=== PATIENT | male | born 1955 | race Caucasian/White ===

== ENCOUNTER 2023-03-03 13:02 | Emergency (ER) | payer MEDICARE, OTHER ==
[~2023-03-03] VITALS: Ht 157.5 cm; Wt 63.6 kg
[2023-03-03 13:17] VITALS: BP 140/76; PULSE 72; RESP 18; TEMP 98
== END 2023-03-03 15:46 | disposition home or self-care (01) ==
LOC: EDSEX 13:38 → EMS 13:38
DX: L70.0 Acne vulgaris (principal); F17.210 Nicotine dependence, cigarettes, uncomplicated
CPT/HCPCS: 99281; 99284; Z7502

== ENCOUNTER 2023-06-07 13:24 | Emergency (ER) | payer MEDICARE, OTHER | END 2023-06-07 13:38 | disposition left against medical advice (07) | LOC: EMS 13:24 | DX: Z53.21 Procedure and treatment not carried out due to patient leaving prior to being seen by health care provider (principal) ==

== ENCOUNTER 2024-10-03 12:00 | Inpatient (IN) | payer MEDICARE, OTHER ==
[~2024-10-03] VITALS: Ht 165.1 cm; Wt 65.9 kg
[2024-10-03 13:05] LABS: BASOPHILS % (AUTO) 0.5 % (0.0-2.0); EOSINOPHILS % (AUTO) 0.2 % (1.0-6.0); HEMATOCRIT 48.9 % (41-53); HEMOGLOBIN 16.7 g/dL (13.5-17.5); LYMPHOCYTES # (AUTO) 1.3 K/uL (1.0-4.8); MEAN CORPUSCULAR HEMOGLOBIN 33.7 pg (26.0-34.0); MEAN CORPUSCULAR HGB CONC 34.2 G/dL (31.0-37.0); MEAN CORPUSCULAR VOLUME 99 fL (80-100); MONOCYTES # (AUTO) 0.5 K/uL (0.1-1.0); MONOCYTES % (AUTO) 5.5 % (2.0-9.0); NEUTROPHILS # (AUTO) 7.3 K/uL (1.8-7.7); NEUTROPHILS % (AUTO) 79.8 % (40.0-70.0); PLATELET COUNT (AUTO) 290 K/uL (150-450); RED BLOOD CELL COUNT(AUTO) 4.97 MIL/uL (4.50-5.90); RED CELL DISTRIBUTION WIDTH 14.1 % (11.5-14.5); WHITE BLOOD COUNT (AUTO) 9.1 K/uL (4.5-11.0)
[2024-10-03 13:17] LABS: ANION GAP 7 mmol/L (8-16); CALCIUM, TOTAL 9.6 mg/dL (8.8-10.5); CARBON DIOXIDE 29 mmol/L (22-29); CHLORIDE 102 mmol/L (98-107); CREATININE 0.85 mg/dL (0.60-1.30); GLOMERULAR FILTR. RATE CALC > 60 mL/min (>60); GLUCOSE,RANDOM 108 mg/dL (70-110); SODIUM SERUM 138 mmol/L (136-145); UREA NITROGEN, BLOOD 16 mg/dL (7-18)
[2024-10-03 13:22] LABS: ALCOHOL, BLOOD (SERUM) < 3 mg/dL (0-10)
[2024-10-03] MEDS: HALOPERIDOL LACTATE 5 MG/ML VIAL IM ONE (14:21)
[2024-10-03] MEDS: DiphenhydrAMINE HCL 50 MG/ML VIAL IM ONE (14:21)
[2024-10-03] MEDS: LORazepam 2 MG/ML VIAL IM ONE (14:21)
[2024-10-03] MEDS: MAGNESIUM SULFATE 2 GM, MVI, ADULT NO.1 WITH VIT K 10 ML, THIAMINE 100 MG, FOLIC ACID 1... IV ONE (15:54)
[2024-10-03] MEDS ORDERED: BISACODYL 10 MG RECTAL RECTAL SUPPOSITORY PR PRN (16:00)
[2024-10-03] MEDS ORDERED: HYDROCODONE/ACETAMINOPHEN 5-325 MG TABLET PO PRN (16:00)
[2024-10-03] MEDS ORDERED: ONDANSETRON HCL 4 MG/2 ML VIAL IVP PRN (16:00)
[2024-10-03] MEDS ORDERED: ACETAMINOPHEN 325 MG TABLET PO PRN (16:00)
[2024-10-03] MEDS ORDERED: MORPHINE SULFATE 2 MG/ML SYRINGE IVP PRN (16:00)
[2024-10-03] MEDS ORDERED: ZOLPIDEM TARTRATE 5 MG TABLET PO PRN (16:00)
[2024-10-03] MEDS ORDERED: MAGNESIUM HYDROXIDE SUSPENSION 30 ML UDCUP PO PRN (16:00)
[2024-10-03] MEDS: AmLODIPine BESYLATE 5 MG TABLET PO SCH (16:39)
[2024-10-03] MEDS: DOCUSATE SODIUM 100 MG CAPSULE PO SCH (21:00)
[2024-10-03 22:00] VITALS: BP 140/76; PULSE 58; RESP 18; TEMP 98.3; O2SAT 98
[2024-10-03 23:32] LABS: APPEARANCE,URINE CLEAR (CLEAR); BILIRUBIN,URINE NEGATIVE (NEGATIVE); COLOR,URINE LIGHT YELLOW (YELLOW); GLUCOSE, URINE (UA) NEGATIVE (NEGATIVE); KETONES,URINE NEGATIVE (NEGATIVE); LEUKOCYTE ESTERASE ,URINE NEGATIVE (NEGATIVE); NITRATE,URINE NEGATIVE (NEGATIVE); OCCULT BLOOD,URINE NEGATIVE (NEGATIVE); PROTEIN,URINE NEGATIVE (NEGATIVE); SPECIFIC GRAVITIY, URINE 1.011 (1.003-1.030); UROBILINOGEN,URINE <=1.0 mg/dL (<=1.0)
[2024-10-03 23:35] LABS: AMPHET/METH SCREEN,URINE NEGATIVE (NEGATIVE); BARBITURATE SCREEN, URINE NEGATIVE (NEGATIVE); BENZODIAZEPINES SCREEN,URINE NEGATIVE (NEGATIVE); CANNABINOID SCREEN,URINE NEGATIVE (NEGATIVE); COCAINE SCREEN,URINE NEGATIVE (NEGATIVE); METHADONE SCREEN, URINE NEGATIVE (NEGATIVE); OPIATE SCREEN,URINE NEGATIVE (NEGATIVE); PHENCYCLIDINE SCREEN,URINE NEGATIVE (NEGATIVE)
[2024-10-03 23:37] LABS: BACTERIA,URINE None Seen /HPF (None Seen); RBC,URINE None Seen /HPF (0-2); SQUAMOUS EPITHELIAL CELL,UR Few /LPF (None Seen); WBC,URINE None Seen /HPF (0-5)
[2024-10-03 23:45] LABS: ALCOHOL, URINE DRUG SCREEN NEGATIVE (NEGATIVE)
[2024-10-04 05:00] VITALS: BP 135/73; PULSE 64; RESP 18; TEMP 98.6; O2SAT 98
[2024-10-04 07:31] VITALS: BP 138/75; PULSE 68; RESP 18; TEMP 98.6; O2SAT 98
[2024-10-04 08:26] LABS: BASOPHILS % (AUTO) 0.4 % (0.0-2.0); EOSINOPHILS % (AUTO) 0.5 % (1.0-6.0); HEMATOCRIT 50.4 % (41-53); HEMOGLOBIN 17.1 g/dL (13.5-17.5); LYMPHOCYTES # (AUTO) 1.1 K/uL (1.0-4.8); LYMPHOCYTES % (AUTO) 14.4 % (22.0-44.0); MEAN CORPUSCULAR HEMOGLOBIN 33.2 pg (26.0-34.0); MEAN CORPUSCULAR HGB CONC 33.9 G/dL (31.0-37.0); MEAN CORPUSCULAR VOLUME 98 fL (80-100); MONOCYTES # (AUTO) 0.4 K/uL (0.1-1.0); MONOCYTES % (AUTO) 5.8 % (2.0-9.0); NEUTROPHILS % (AUTO) 78.9 % (40.0-70.0); PLATELET COUNT (AUTO) 273 K/uL (150-450); RED BLOOD CELL COUNT(AUTO) 5.13 MIL/uL (4.50-5.90); RED CELL DISTRIBUTION WIDTH 14.2 % (11.5-14.5); WHITE BLOOD COUNT (AUTO) 7.7 K/uL (4.5-11.0)
[2024-10-04 08:33] LABS: ANION GAP 9 mmol/L (8-16); CARBON DIOXIDE 25 mmol/L (22-29); CHLORIDE 104 mmol/L (98-107); CREATININE 0.84 mg/dL (0.60-1.30); GLOMERULAR FILTR. RATE CALC > 60 mL/min (>60); GLUCOSE,RANDOM 104 mg/dL (70-110); POTASSIUM 3.9 mmol/L (3.5-5.1); SODIUM SERUM 138 mmol/L (136-145); UREA NITROGEN, BLOOD 12 mg/dL (7-18)
[2024-10-04] MEDS: MAGNESIUM SULFATE 2 GM, MVI, ADULT NO.1 WITH VIT K 10 ML, THIAMINE 100 MG, FOLIC ACID 1... IV ONE (09:45)
[2024-10-04] MEDS: PANTOPRAZOLE SODIUM 40 MG DR TABLET PO SCH (09:47)
[2024-10-04] MEDS: FOLIC ACID 1 MG TABLET PO SCH (09:47)
[2024-10-04 15:23] VITALS: BP 134/72; PULSE 62; RESP 18; TEMP 98.4; O2SAT 96
[2024-10-04 19:45] VITALS: BP 143/70; PULSE 58; RESP 18; TEMP 97.8; O2SAT 99
[2024-10-05 04:31] VITALS: BP 133/72; PULSE 63; RESP 18; TEMP 98.4; O2SAT 100
[2024-10-05 08:26] VITALS: BP 152/62; PULSE 70; RESP 19; TEMP 98.6; O2SAT 100
[2024-10-05] MEDS: RisperiDONE 1 MG TABLET PO SCH (11:45)
[2024-10-05] MEDS: HALOPERIDOL LACTATE 5 MG/ML VIAL IM PRN (14:01)
[2024-10-05 16:30] VITALS: BP 156/69; PULSE 82; RESP 19; TEMP 98; O2SAT 100
[2024-10-05] MEDS: DiphenhydrAMINE HCL 50 MG/ML VIAL IVP ONE (17:15)
[2024-10-05] MEDS: LORazepam 2 MG/ML VIAL IVP ONE (18:46)
[2024-10-05 19:30] VITALS: BP 118/73; PULSE 73; RESP 18; TEMP 97.7; O2SAT 98
[2024-10-06 04:20] VITALS: BP 131/75; PULSE 62; RESP 19; TEMP 97.9; O2SAT 98
[2024-10-06 07:57] VITALS: BP 120/74; PULSE 89; RESP 18; TEMP 98.4; O2SAT 97
[2024-10-06] MEDS: NICOTINE 21 MG/24 HOUR PATCH TD SCH (15:18)
[2024-10-06 15:57] VITALS: BP 125/85; PULSE 76; RESP 18; TEMP 97.3; O2SAT 98
[2024-10-06 19:27] VITALS: BP 142/78; PULSE 86; RESP 18; TEMP 97.8; O2SAT 99
[2024-10-07 05:27] VITALS: BP 149/90; PULSE 90; RESP 18; TEMP 97.8; O2SAT 97
[2024-10-07 16:30] VITALS: BP 135/87; PULSE 73; RESP 19; TEMP 97.3; O2SAT 99
[2024-10-07 19:20] VITALS: BP 134/81; PULSE 81; RESP 18; TEMP 98.6; O2SAT 97
[2024-10-08 05:30] VITALS: BP 145/83; PULSE 72; RESP 18; TEMP 97.7; O2SAT 96
[2024-10-08] MEDS ORDERED: ALBUTEROL SULFATE HFA 90 MCG/PUFF 8 GM INHALER IH PRN (08:00)
[2024-10-08 09:00] VITALS: BP 125/75; PULSE 86; RESP 20; TEMP 98.6; O2SAT 98
[2024-10-08 19:40] VITALS: BP 148/73; PULSE 75; RESP 20; TEMP 97.7; O2SAT 99
[2024-10-09 04:20] VITALS: BP 104/80; PULSE 78; RESP 18; TEMP 97.5; O2SAT 97
[2024-10-09 08:09] VITALS: BP 132/71; PULSE 68; RESP 18; TEMP 97.9; O2SAT 98
[2024-10-09 16:22] VITALS: BP 157/79; PULSE 78; RESP 20; TEMP 98.2; O2SAT 100
[2024-10-09 20:26] VITALS: BP 100/64; PULSE 82; RESP 19; TEMP 97.9; O2SAT 96
[2024-10-10 04:33] VITALS: BP 115/84; PULSE 95; RESP 18; TEMP 97.6; O2SAT 98
[2024-10-10 08:49] VITALS: BP 132/76; PULSE 83; RESP 18; TEMP 98; O2SAT 100
[2024-10-10 16:26] VITALS: BP 152/83; PULSE 78; RESP 18; TEMP 97.8; O2SAT 100
[2024-10-10 20:12] VITALS: BP 126/76; PULSE 79; RESP 18; TEMP 98.1; O2SAT 98
[2024-10-11 08:30] VITALS: BP 152/82; PULSE 66; RESP 20; TEMP 98.7; O2SAT 97
[2024-10-11 17:00] VITALS: BP 101/85; PULSE 72; RESP 20; TEMP 98.2; O2SAT 98
[2024-10-11 20:14] VITALS: BP 120/89; PULSE 74; RESP 18; TEMP 98.1; O2SAT 97
[2024-10-12 04:00] VITALS: BP 130/74; PULSE 77; RESP 20; TEMP 98.2; O2SAT 98
[2024-10-12 07:56] VITALS: BP 108/71; PULSE 68; RESP 19; TEMP 98.2; O2SAT 98
[2024-10-12 16:03] VITALS: BP 121/71; PULSE 64; RESP 18; TEMP 97.7; O2SAT 100
[2024-10-12 20:25] VITALS: BP 140/69; PULSE 69; RESP 20; TEMP 98.2; O2SAT 98
[2024-10-13 05:20] VITALS: BP 111/71; PULSE 67; RESP 20; TEMP 98.1; O2SAT 98
[2024-10-13 08:37] VITALS: BP 100/66; PULSE 69; RESP 18; TEMP 97.9; O2SAT 98
[2024-10-13] MEDS: AmLODIPine BESYLATE 5 MG TABLET PO SCH (09:14)
[2024-10-13 16:24] VITALS: BP 122/67; PULSE 64; RESP 18; TEMP 97.8; O2SAT 10
[2024-10-13 21:20] VITALS: BP 124/60; PULSE 78; RESP 18; TEMP 98.8; O2SAT 97
[2024-10-14 04:00] VITALS: BP 115/60; PULSE 57; RESP 18; TEMP 97.3; O2SAT 100
[2024-10-14 08:00] VITALS: BP 113/97; PULSE 72; RESP 18; TEMP 98.1; O2SAT 99
[2024-10-14 08:21] VITALS: BP 110/80; PULSE 64; RESP 19; TEMP 98; O2SAT 99
[2024-10-14] MEDS ORDERED: RISP-31 PO (12:28)
[2024-10-14] MEDS ORDERED: ALBU18HF12 IH (12:28)
== END 2024-10-14 14:24 | disposition home or self-care (01) | DRG 304 ==
LOC: EMS 12:12 → EDH 15:48 → 4E 21:28 → 6N 10-04 18:54 → 6S 10-08 09:26
PROVIDERS: ADMIT Internal Medicine; ATTEND Internal Medicine
PROC: GZ52ZZZ Individual Psychotherapy, Cognitive (ICD-10-PCS; principal; 2024-10-05)
PROC: GZ56ZZZ Individual Psychotherapy, Supportive (ICD-10-PCS; 2024-10-05)
DX: I16.0 Hypertensive urgency (principal); G93.41 Metabolic encephalopathy; F03.C2 Unspecified dementia, severe, with psychotic disturbance; F23 Brief psychotic disorder; R47.01 Aphasia; I10 Essential (primary) hypertension; F32.A Depression, unspecified; J44.9 Chronic obstructive pulmonary disease, unspecified; F17.200 Nicotine dependence, unspecified, uncomplicated; F10.90 Alcohol use, unspecified, uncomplicated
CPT/HCPCS: 70450; 71045; 80048; 80307; 81001; 85025; 93005; 96365; 96372; 99291; G0378; G0480; J1200; J1630; J2060; J3411; J3475; J3490; J3535; J7030; 36415-L1; 36415-TC

== ENCOUNTER → 2024-11-19 | Emergency (ER) | payer MEDICARE, OTHER ==
[~2024-11-19] MED LIST: ALBU18HF12 IH; RISP-31 PO
== END | disposition left against medical advice (07) ==
LOC: EMS 12:41
DX: Z53.21 Procedure and treatment not carried out due to patient leaving prior to being seen by health care provider (principal)